=== PATIENT | male | born 1980 | race Caucasian/White ===

== ENCOUNTER → 2020-01-29 | Outpatient (CLI) | payer OTHER ==
[~2020-01-29] MED LIST: CLINDAMYCIN HC300 MG PO; COGENTIN1 MG; IBU-8800 MG PO; LATUDA80 MG; MOTRIN800 MG PO; SEPTRA DS 800 M1 TAB PO; VICODIN 5/500 505 MG PO; VISTARIL50 MG; XANAX2 MG
== END | disposition home or self-care (01) ==
LOC: COVID19 05:41
DX: Z20.828 Contact with and (suspected) exposure to other viral communicable diseases (principal)

== ENCOUNTER 2020-04-25 17:10 | Emergency (ER) | payer OTHER ==
[~2020-04-25] VITALS: Ht 170.1 cm; Wt 95.3 kg
[2020-04-25 17:28] VITALS: BP 149/93
== END 2020-04-25 18:06 | disposition home or self-care (01) ==
LOC: ED 17:10
DX: S61.216A Laceration without foreign body of right little finger without damage to nail, initial encounter (principal); Z79.899 Other long term (current) drug therapy; X58.XXXA Exposure to other specified factors, initial encounter; Y93.89 Activity, other specified; Y92.89 Other specified places as the place of occurrence of the external cause; Y99.8 Other external cause status

== ENCOUNTER 2020-12-21 05:51 | Emergency (ER) | payer OTHER ==
[~2020-12-21] VITALS: Ht 170.1 cm; Wt 109.8 kg
[~2020-12-21 05:51] MED LIST changes: +COGENTIN0.5 MG PO; -COGENTIN1 MG
[2020-12-21 06:04] VITALS: BP 158/89
[2020-12-21 06:26] LABS: HEMATOCRIT 39.8 % (42.0-52.0); MEAN CORPUSCULAR HGB 32.7 pg (27.0-31.0); MEAN CORPUSCULAR HGB CONC 34.4 g/dl (33.0-37.0); MEAN PLATELET VOLUME 9.6 fl (9.6-12.3); PLATELET COUNT AUTOMATED 275 10*3/uL (130-400); RED BLOOD COUNT 4.19 10*6/uL (4.50-5.90); RED CELL DISTRI WIDTH 13.2 % (0-14.5); WHITE BLOOD COUNT 11.4 10*3/uL (4.8-10.8)
[2020-12-21 06:43] LABS: ALBUMIN 3.1 gm/dl (3.1-4.5); ALKALINE PHOSPHATASE 101 U/L (45-117); BUN 7 mg/dl (7-24); CHLORIDE 96 mmol/L (98-107); CREATININE 0.97 mg/dL (0.70-1.30); POTASSIUM 3.8 mmol/L (3.5-5.1); SGOT/AST 67 IU/L (3-35); SGPT/ALT 61 U/L (12-78); SODIUM 129 mmol/L (136-145); TOTAL PROTEIN 7.5 gm/dL (6.4-8.2)
[2020-12-21 07:07] LABS: PLATELET SUFFICIENCY NORMAL (NORMAL); TOTAL CELLS COUNTED 100 #CELLS
[2020-12-21] MEDS ORDERED: ZITHROMAX250 MG PO ×2 (07:34)
[2021-01-26] MEDS ORDERED: VRAYLAR4.5 MG PO (12:07)
[2021-01-26] MEDS ORDERED: PRINIVIL20 M1 PO (12:08)
[2021-01-26] MEDS ORDERED: LIPITOR10 MG PO (12:09)
[2021-01-26] MEDS ORDERED: DOXEPIN HCL10 MG PO (12:11)
[2021-01-26] MEDS ORDERED: MELATONIN10 M4 PO (12:11)
== END 2020-12-21 09:25 | disposition home or self-care (01) ==
LOC: ED 05:51
PROVIDERS: Internal Medicine
DX: J18.9 Pneumonia, unspecified organism (principal); Z20.822 Contact with and (suspected) exposure to COVID-19; R11.2 Nausea with vomiting, unspecified; R10.9 Unspecified abdominal pain; F32.9 Major depressive disorder, single episode, unspecified; Z91.030 Bee allergy status; Z91.018 Allergy to other foods; Z91.010 Allergy to peanuts; Z88.8 Allergy status to other drugs, medicaments and biological substances; Z79.899 Other long term (current) drug therapy

== ENCOUNTER → 2020-12-25 | Outpatient (CLI) | payer OTHER ==
[~2020-12-25] MED LIST changes: +DOXEPIN HCL10 MG PO; +LIPITOR10 MG PO; +MELATONIN10 M4 PO; +PRINIVIL20 M1 PO; +VRAYLAR4.5 MG PO; +ZITHROMAX250 MG PO
[2020-12-25 12:04] LABS: HEMATOCRIT 43.9 % (42.0-52.0); MEAN CELL VOLUME 93.8 fl (80.0-94.0); MEAN CORPUSCULAR HGB 31.6 pg (27.0-31.0); MEAN CORPUSCULAR HGB CONC 33.7 g/dl (33.0-37.0); MEAN PLATELET VOLUME 9.6 fl (9.6-12.3); PLATELET COUNT AUTOMATED 434 10*3/uL (130-400); RED BLOOD COUNT 4.68 10*6/uL (4.50-5.90); RED CELL DISTRI WIDTH 13.1 % (0-14.5)
[2020-12-25 12:18] LABS: ALBUMIN 3.4 gm/dl (3.1-4.5); ALKALINE PHOSPHATASE 138 U/L (45-117); BUN 9 mg/dl (7-24); CHLORIDE 103 mmol/L (98-107); CREATININE 0.89 mg/dL (0.70-1.30); SGOT/AST 45 IU/L (3-35); SGPT/ALT 83 U/L (12-78); SODIUM 135 mmol/L (136-145); TOTAL PROTEIN 7.7 gm/dL (6.4-8.2)
[2020-12-25 12:42] LABS: PLATELET SUFFICIENCY HIGH (NORMAL); TOTAL CELLS COUNTED 100 #CELLS
[2020-12-26 05:06] LABS: HEP B CORE AB, IGM Negative (Negative); HEPATITIS B SURFACE AG Negative (Negative); HEPATITIS C VIRUS ANTIBODY <0.1 s/co (0.0-0.9)
== END | disposition home or self-care (01) ==
LOC: LAB 11:32
PROVIDERS: ATTEND Internal Medicine
DX: R91.8 Other nonspecific abnormal finding of lung field (principal); J18.9 Pneumonia, unspecified organism; R74.01 Elevation of levels of liver transaminase levels

== ENCOUNTER → 2021-01-12 | Outpatient (CLI) | payer OTHER | END | disposition home or self-care (01) | LOC: RAD 11:27 | PROVIDERS: ATTEND Internal Medicine | DX: J18.9 Pneumonia, unspecified organism (principal) ==

== ENCOUNTER → 2021-01-26 | Outpatient (CLI) | payer OTHER | END | disposition home or self-care (01) | LOC: CARD 01:32 | PROVIDERS: ATTEND Internal Medicine | DX: R94.31 Abnormal electrocardiogram [ECG] [EKG] (principal); R07.2 Precordial pain ==

== ENCOUNTER → 2021-08-03 | Outpatient (CLI) | payer OTHER ==
[2021-08-03 12:38] LABS: BUN 9 mg/dl (7-24); CHLORIDE 99 mmol/L (98-107); CREATININE 0.92 mg/dL (0.70-1.30); POTASSIUM 3.9 mmol/L (3.5-5.1); SGOT/AST 31 IU/L (3-35); SGPT/ALT 56 U/L (12-78); SODIUM 130 mmol/L (136-145); TOTAL PROTEIN 7.7 gm/dL (6.4-8.2)
[2021-08-03 12:42] LABS: ALKALINE PHOSPHATASE 154 U/L (45-117)
[2021-08-03 13:03] LABS: CHOLESTEROL 192 mg/dL (<200)
[2021-08-03 13:12] LABS: TRIGLYCERIDES 1674 mg/dl (<150)
[2021-08-03 13:13] LABS: FREE T4 1.04 ng/dl (0.76-1.46)
== END ==
LOC: LAB 10:28 → US 11:00
PROVIDERS: ATTEND Internal Medicine
DX: K76.0 Fatty (change of) liver, not elsewhere classified (principal); R73.9 Hyperglycemia, unspecified; R74.8 Abnormal levels of other serum enzymes

== ENCOUNTER → 2022-12-22 | Outpatient (CLI) | payer OTHER | END | disposition home or self-care (01) | LOC: NM 12-19 07:00 | PROVIDERS: ATTEND Internal Medicine | DX: E11.9 Type 2 diabetes mellitus without complications (principal) ==

== ENCOUNTER 2023-12-28 00:09 | Emergency (ER) | payer OTHER ==
[~2023-12-28] VITALS: Ht 170.1 cm; Wt 101.2 kg
[2023-12-28 00:21] VITALS: BP 164/109
[2023-12-28] MEDS ORDERED: SODIUM CHLORIDE 0.9% 1,000 ML IV ONE (01:20)
[2023-12-28] MEDS ORDERED: Ondansetron Hydrochloride 4 MG/2 ML VIAL IV ONE (01:20)
[2023-12-28] MEDS ORDERED: IOHEXOL 300 MG/ML 100 ML VIAL IV ONE (01:30)
[2023-12-28 01:43] LABS: BASO # 0.1 10*3/uL (0.0-0.1); BASO % 0.4 % (0.0-1.0); EOS # 0.3 10*3/uL (0.0-0.4); EOS % 1.8 % (1.0-4.0); HEMATOCRIT 51.7 % (42.0-52.0); LYMPH # 4.6 10*3/uL (1.3-4.4); LYMPH % 25.7 % (27.0-41.0); MEAN CELL VOLUME 94.7 fl (80.0-94.0); MEAN CORPUSCULAR HGB 32.6 pg (27.0-31.0); MEAN CORPUSCULAR HGB CONC 34.4 g/dl (33.0-37.0); MEAN PLATELET VOLUME 9.6 fl (9.6-12.3); MONO # 1.3 10*3/uL (0.1-1.0); MONO % 7.4 % (3.0-9.0); NEUT # 11.5 10*3/uL (2.3-7.9); NEUT % 64.2 % (47.0-73.0); PLATELET COUNT AUTOMATED 267 10*3/uL (130-400); RED BLOOD COUNT 5.46 10*6/uL (4.50-5.90); RED CELL DISTRI WIDTH 13.6 % (0-14.5); WHITE BLOOD COUNT 17.9 10*3/uL (4.8-10.8)
[2023-12-28 02:02] LABS: BUN 6 mg/dl (9-23); CHLORIDE 101 mmol/L (98-107); LIPASE 32 U/L (12-53); POTASSIUM 3.8 mmol/L (3.4-5.1)
[2023-12-28 02:16] LABS: BILIRUBIN Negative (Negative); BLOOD Negative (Negative); CLARITY Clear (Clear); COLOR Yellow (Yellow); GLUCOSE 3+ (Negative); KETONE Negative (Negative); LEUKO ESTERASE Negative (Negative); NITRITE Negative (Negative); PH 6.5 (4.5-8.0); SPECIFIC GRAVITY >= 1.030 (1.001-1.030); UROBILINOGEN 0.2 E.U./dl (0.0-1.0)
[2023-12-28] MEDS ORDERED: Ketorolac Tromethamine 30 MG/ML VIAL IV ONE (02:45)
== END 2023-12-28 03:02 | disposition home or self-care (01) ==
LOC: ED 00:09
PROVIDERS: Emergency Medicine
DX: K52.9 Noninfective gastroenteritis and colitis, unspecified (principal); R51.9 Headache, unspecified; R11.10 Vomiting, unspecified; I10 Essential (primary) hypertension; F32.A Depression, unspecified; Z91.030 Bee allergy status; Z91.013 Allergy to seafood; Z91.018 Allergy to other foods; Z88.8 Allergy status to other drugs, medicaments and biological substances; Z98.890 Other specified postprocedural states; Z87.891 Personal history of nicotine dependence

== ENCOUNTER 2025-01-31 04:07 | Emergency (ER) | payer OTHER ==
[~2025-01-31] VITALS: Ht 170.1 cm; Wt 97.5 kg
[2025-01-31 04:13] VITALS: BP 159/106
[2025-01-31] MEDS ORDERED: diphenhydrAMINE hydrochloride 50 MG/ML VIAL IV ONE (04:20)
[2025-01-31] MEDS ORDERED: Bacitracin Zinc 14 GM TUBE T ONE (04:20)
[2025-01-31] MEDS ORDERED: FAMOTIDINE 50 ML IV ONE (04:20)
== END 2025-01-31 05:50 | disposition home or self-care (01) ==
LOC: ED 04:07
DX: T63.441A Toxic effect of venom of bees, accidental (unintentional), initial encounter (principal); L53.0 Toxic erythema; F32.A Depression, unspecified; Z91.030 Bee allergy status; Z91.013 Allergy to seafood; Z88.8 Allergy status to other drugs, medicaments and biological substances; Z79.899 Other long term (current) drug therapy; Y92.89 Other specified places as the place of occurrence of the external cause

== ENCOUNTER 2025-02-25 23:30 | Emergency (ER) | payer OTHER ==
[~2025-02-25] VITALS: Ht 172.7 cm; Wt 117.9 kg
[2025-02-25 23:48] VITALS: BP 162/97
[2025-02-25] MEDS ORDERED: Acetaminophen/Hydrocodone 5 MG/325 MG TABLET PO ONE (23:55)
[2025-02-25] MEDS ORDERED: Ondansetron Hydrochloride 4 MG TAB SL ONE (23:55)
[2025-02-25] MEDS ORDERED: HYDROCORTISONE ACETATE 25 MG SUPP R ONE (23:55)
[2025-02-25] MEDS ORDERED: MIRALAX POWDER17 G1 PO (23:58)
== END 2025-02-26 00:03 | disposition home or self-care (01) ==
LOC: ED 23:30
DX: K64.4 Residual hemorrhoidal skin tags (principal); K64.8 Other hemorrhoids; F32.A Depression, unspecified; I10 Essential (primary) hypertension; F20.9 Schizophrenia, unspecified; E78.00 Pure hypercholesterolemia, unspecified; Z98.890 Other specified postprocedural states; Z91.030 Bee allergy status; Z91.013 Allergy to seafood; Z91.018 Allergy to other foods; Z88.8 Allergy status to other drugs, medicaments and biological substances

== ENCOUNTER → 2025-03-07 | Outpatient (CLI) | payer OTHER ==
[~2025-03-07] MED LIST changes: +MIRALAX POWDER17 G1 PO
[2025-03-07 15:36] LABS: BASO # 0.1 10*3/uL (0.0-0.1); BASO % 0.5 % (0.0-1.0); EOS # 0.2 10*3/uL (0.0-0.4); EOS % 1.5 % (1.0-4.0); MEAN CELL VOLUME 94.2 fl (80.0-94.0); MEAN CORPUSCULAR HGB 32.5 pg (27.0-31.0); MEAN PLATELET VOLUME 9.7 fl (9.6-12.3); MONO # 1.1 10*3/uL (0.1-1.0); MONO % 8.0 % (3.0-9.0); NEUT # 7.3 10*3/uL (2.3-7.9); NEUT % 56.2 % (47.0-73.0); NUCLEATED RED BLOOD CELL 0.0 % (0.0-0.0); NUCLEATED RED BLOOD CELL 0.0 10*3/uL (0.0-0.0); PLATELET COUNT AUTOMATED 272 10*3/uL (130-400); RED CELL DISTRI WIDTH 13.4 % (0-14.5)
[2025-03-07 15:57] LABS: BUN 7 mg/dl (9-23); SGPT/ALT 34 U/L (5-49)
== END | disposition home or self-care (01) ==
LOC: LAB 15:04
PROVIDERS: ATTEND Family Medicine
DX: E11.9 Type 2 diabetes mellitus without complications (principal); E78.5 Hyperlipidemia, unspecified

== ENCOUNTER → 2025-04-07 | Day surgery (SDC) | payer OTHER ==
[~2025-04-07] VITALS: Ht 170.1 cm; Wt 99.8 kg
[~2025-04-07] MED LIST changes: +ALDACTONE25 MG PO; +ASPIRIN CHEWABL81 MG PO; +CARVEDILOL3.125 MG PO; +FENOFIBRATE130 M1 PO; +JARDIANCE25 MG PO; +LOSARTAN POTAS100 M1 PO; +Lactated Ringer's Solution 1,000 ML IV ONE; +Lidocaine Hydrochloride 5 ML VIAL IV ONE; +METFORMIN HYD1000 MG PO; +PROPOFOL 200 MG/20 ML VIAL IV ONE; +TRESIBA FL100 UNIT/1 SQ; +TRULICITY4.5 MG/0.5 SQ
[2025-04-07 08:01] VITALS: BP 135/81
[2025-04-07 09:06] VITALS: BP 132/89
[2025-04-07 09:21] VITALS: BP 130/83
[2025-04-07 09:34] VITALS: BP 139/87
== END | disposition home or self-care (01) ==
LOC: SDC 04-03 09:30
PROVIDERS: ATTEND Surgery
DX: K92.1 Melena (principal); K63.5 Polyp of colon; K64.9 Unspecified hemorrhoids; E11.9 Type 2 diabetes mellitus without complications; I11.0 Hypertensive heart disease with heart failure; I50.9 Heart failure, unspecified; E78.00 Pure hypercholesterolemia, unspecified; F17.200 Nicotine dependence, unspecified, uncomplicated; F43.10 Post-traumatic stress disorder, unspecified; F41.9 Anxiety disorder, unspecified; F32.A Depression, unspecified; I25.10 Atherosclerotic heart disease of native coronary artery without angina pectoris; Z98.890 Other specified postprocedural states; Z79.899 Other long term (current) drug therapy

== ENCOUNTER 2025-05-22 00:05 | Emergency (ER) | payer OTHER ==
[~2025-05-22] VITALS: Ht 170.1 cm; Wt 101.2 kg
[~2025-05-22 00:05] MED LIST changes: -Lactated Ringer's Solution 1,000 ML IV ONE; -Lidocaine Hydrochloride 5 ML VIAL IV ONE; -PROPOFOL 200 MG/20 ML VIAL IV ONE
[2025-05-22 00:40] VITALS: BP 154/72
[2025-05-22 01:04] LABS: BASO # 0.1 10*3/uL (0.0-0.1); BASO % 0.4 % (0.0-1.0); EOS # 0.2 10*3/uL (0.0-0.4); EOS % 1.7 % (1.0-4.0); MEAN CELL VOLUME 95.9 fl (80.0-94.0); MEAN CORPUSCULAR HGB 31.9 pg (27.0-31.0); MEAN PLATELET VOLUME 10.1 fl (9.6-12.3); MONO # 1.0 10*3/uL (0.1-1.0); MONO % 7.5 % (3.0-9.0); NEUT # 8.4 10*3/uL (2.3-7.9); NEUT % 61.0 % (47.0-73.0); NUCLEATED RED BLOOD CELL 0.0 % (0.0-0.0); NUCLEATED RED BLOOD CELL 0.0 10*3/uL (0.0-0.0); PLATELET COUNT AUTOMATED 252 10*3/uL (130-400); RED CELL DISTRI WIDTH 13.3 % (0-14.5)
[2025-05-22 01:30] LABS: BUN 12 mg/dl (9-23)
[2025-05-22 01:45] LABS: BILIRUBIN Negative (Negative); BLOOD Negative (Negative); CLARITY Clear (Clear); COLOR Yellow (Yellow); KETONE Negative (Negative); LEUKO ESTERASE Negative (Negative); NITRITE Negative (Negative); PH 6.0 (4.5-8.0); SPECIFIC GRAVITY 1.020 (1.001-1.030); UROBILINOGEN 1.0 E.U./dl (0.0-1.0)
[2025-05-22 02:17] LABS: WBC 0-2 wbc/hpf (0-5)
[2025-05-22] MEDS ORDERED: NAPROXEN250 MG PO (02:22)
[2025-05-22] MEDS ORDERED: METHOCARBAMOL750 M1 PO (02:22)
== END 2025-05-22 02:23 | disposition home or self-care (01) ==
LOC: ED 00:05
PROVIDERS: Internal Medicine
DX: S39.012A Strain of muscle, fascia and tendon of lower back, initial encounter (principal); E78.5 Hyperlipidemia, unspecified; I11.0 Hypertensive heart disease with heart failure; I50.9 Heart failure, unspecified; F32.A Depression, unspecified; F17.200 Nicotine dependence, unspecified, uncomplicated; Z91.030 Bee allergy status; Z88.8 Allergy status to other drugs, medicaments and biological substances; X58.XXXA Exposure to other specified factors, initial encounter; Y93.01 Activity, walking, marching and hiking; Y92.89 Other specified places as the place of occurrence of the external cause; Y99.8 Other external cause status

== ENCOUNTER 2025-05-29 07:55 | Emergency (ER) | payer OTHER ==
[~2025-05-29] VITALS: Ht 170.1 cm; Wt 101.6 kg
[~2025-05-29 07:55] MED LIST changes: +METHOCARBAMOL750 M1 PO; +NAPROXEN250 MG PO
[2025-05-29 08:00] VITALS: BP 144/89
[2025-05-29] MEDS ORDERED: ZITHROMAX250 MG PO (09:43)
[2025-05-29] MEDS ORDERED: PREDNISONE20 M1 PO (09:43)
[2025-05-29] MEDS ORDERED: VENT7GM INH (09:43)
== END 2025-05-29 09:53 | disposition home or self-care (01) ==
LOC: ED 07:55
DX: J06.9 Acute upper respiratory infection, unspecified (principal); J40 Bronchitis, not specified as acute or chronic; F32.A Depression, unspecified; I10 Essential (primary) hypertension; F20.9 Schizophrenia, unspecified; Z91.030 Bee allergy status; Z88.8 Allergy status to other drugs, medicaments and biological substances; Z20.822 Contact with and (suspected) exposure to COVID-19

== ENCOUNTER → 2025-06-02 | Outpatient (CLI) | payer OTHER ==
[~2025-06-02] MED LIST changes: +PREDNISONE20 M1 PO; +VENT7GM INH
[2025-06-02 12:15] LABS: BUN 9 mg/dl (9-23); LDL CHOLESTEROL 119 mg/dL (9-159); SGPT/ALT 24 U/L (5-49)
== END | disposition home or self-care (01) ==
LOC: LAB 11:27
PROVIDERS: ATTEND Family Medicine
DX: E11.9 Type 2 diabetes mellitus without complications (principal); E78.5 Hyperlipidemia, unspecified